=== PATIENT | male | born 1980 | race Asian ===

== ENCOUNTER → 2016-08-21 | Outpatient (CLI) | payer BC ==
--- NOTE | 2016-08-21 17:41 | DX ---
Knee 4 or More Views Left History: Knee pain Comparison exam: None available. Findings: Normal alignment. Joint spaces are maintained. No fracture or joint effusion. Impression: Negative radiographs of the left knee.
== END ==
LOC: FIMAGING 17:13
PROVIDERS: ATTEND Family Medicine
DX: M25.562 Pain in left knee (principal)

== ENCOUNTER 2017-06-06 21:05 | Emergency (ER) | payer BC ==
[2017-06-06] MEDS ORDERED: IBUPROFEN 200 MG TAB PO ONE (22:01)
--- NOTE | 2017-06-06 22:04 | EDPHY ---
H & P Stated Complaint: fever Time Seen by Provider: 06/06/17 21:48 HPI/ROS: Chief Complaint: Fever, sore throat, cough HPI: 37-year-old [place] immunocompetent male presenting with 2 days of fever , sore throat, headache, cough. Patient states he had a flu vaccine 2 weeks ago. Had some cough and sore throat. Some shortness of breath with a dry nonproductive cough. A little bit of back pain as well. He had been taking Tylenol and ibuprofen. Last Tylenol was 6 hours ago. No open today. Subjective fevers and chills at home. No nausea or vomiting. Is intermittent chest pain. Pain is not pleuritic. At worst is a 2/10. Does not have a history of tuberculosis or HIV. No recent travel. Does not currently have a primary care physician. ROS: 10 point Review of Systems is negative except as noted in the HPI. PMH: Denies Medications: Tylenol and Advil p.r.n. Allergies: None Social History: No smoking, occasional alcohol, no recreational drug use Family History: non-contributory Physical Exam: Gen: Awake, Alert, No Distress HEENT: Nose: no rhinorrhea Eyes: PERRLA, EOMI Mouth: Moist mucosa diffuse pharyngeal erythema with exudate, uvula is midline Neck: Supple, no JVD Chest: nontender, lungs clear to auscultation Heart: S1, S2 normal, no murmur Abd: Soft, non-tender, no guarding Back: no CVA tenderness, no midline tenderness Ext: no edema, non-tender Skin: no rash Neuro: CN II-XII intact, Sensation grossly intact, Strength 5/5 in bilateral upper and lower extremities - Personal History Current Tetanus/Diphtheria Vaccine: Yes Current Tetanus Diphtheria and Acellular Pertussis (TDAP): Yes - Medical/Surgical History Hx Asthma: No Hx Chronic Respiratory Disease: No Hx Diabetes: No Hx Cardiac Disease: No Hx Renal Disease: No Hx Cirrhosis: No Hx Alcoholism: No Hx HIV/AIDS: No - Social History Smoking Status: Never smoked Constitutional: Initial Vital Signs Temperature (C) 38.3 C 06/06/17 21:08 Heart Rate 110 H 06/06/17 21:08 Respiratory Rate 16 06/06/17 21:08 Blood Pressure 127/71 H 06/06/17 21:08 O2 Sat (%) 96 06/06/17 21:08 O2 Delivery Mode Room Air Allergies/Adverse Reactions: No Known Allergies Allergy (Unverified 06/06/17 21:09) Home Medications: Medication Instructions Recorded Penicillin V Potassium 500 mg PO BID #20 tablet 06/06/17 Medical Decision Making - Data Points Laboratory Results: 06/06/17 22:00 Group A Strep Screen POSITIVE H (NEGATIVE) Medications Given: Discontinued Medications Ibuprofen (Motrin) 400 mg PO EDNOW ONE Stop: 06/06/17 22:02 Last Admin: 06/06/17 22:21 Dose: 400 mg Penicillin V Potassium (Pen Vk) 500 mg PO EDNOW ONE PRN Reason: Protocol Stop: 06/06/17 22:22 Last Admin: 06/06/17 22:29 Dose: 500 mg Departure - Departure Disposition: Home, Routine, Self-Care Clinical Impression: Strep pharyngitis Condition: Good Instructions: Strep Throat (ED) Additional Instructions: Alternate acetaminophen (1000 mg) with ibuprofen (400 mg) every 4 hours as needed for fevers, chills, aches or pains. Follow up with your primary care physician in 3-4 days for re-evaluation. Return to the emergency department for increasing pain, difficulty swallowing, uncontrolled fevers or chills, or any other concerns. Referrals: Gita Flores DO [Doctor of Osteopathy] - As per Instructions Prescriptions: Penicillin V Potassium 500 mg PO BID #20 tablet Print Language: Sinhala
[2017-06-06] MEDS ORDERED: PENICILLIN VK 500 MG TAB PO ONE (22:21)
[2017-06-06 22:29] VITALS: O2SAT 95
[2017-06-06 23:06] VITALS: BP 109/65; PULSE 85; RESP 16; TEMP 98.8
== END 2017-06-06 23:17 | disposition home or self-care (01) ==
DX: J02.0 Streptococcal pharyngitis (principal)

== ENCOUNTER → 2018-07-13 | Outpatient (CLI) | payer BC | LOC: BMCIMAGING 11:01 | PROVIDERS: ATTEND Physician Assistant | DX: Z11.1 Encounter for screening for respiratory tuberculosis (principal); J40 Bronchitis, not specified as acute or chronic ==